=== PATIENT | male | born 1940 | race Caucasian/White ===

== ENCOUNTER 2016-04-25 16:52 | Emergency (ER) | payer BC, OTHER ==
[~2016-04-25 16:52] MED LIST: ABILIFY5 PO; AMILOR/HCTZ1 TAB PO; ASAB PO; COG0.5 PO; CRESTOR PO; CRESTOR20 MG PO; DEPAKOTE PO; DEPAKOTEER PO; DIABETA5 PO; DSS PO; FLOMAX4 PO; GLIPIZIDE PO; GLUCOTROL5 PO; JANUVIA100 MG PO; JANUVIA50 PO; L20 PO; LANTUSCART SC; MAGNESIUM 500MG PO; MAGOX4 PO; MCZ125 PO; NORV5 PO; PRIN10 PO; PT CANNOT RECALL MED; TESSALON200 MG PO; TOVIAZ8 MG PO; TRICOR PO; TRICOR145 PO; VITAMIN D31000 UNIT PO
[2016-11-01] MEDS ORDERED: DEPAKOT500 ×2 (04:26→04:33)
[2016-11-01] MEDS ORDERED: TRADJENTA5 MG PO (04:28)
[2016-11-01] MEDS ORDERED: FLOMAX4 PO (04:33)
== END 2016-04-25 19:39 | disposition home or self-care (01) ==
LOC: ER 16:52
DX: S16.1XXA Strain of muscle, fascia and tendon at neck level, initial encounter (principal); S33.5XXA Sprain of ligaments of lumbar spine, initial encounter; I12.9 Hypertensive chronic kidney disease with stage 1 through stage 4 chronic kidney disease, or unspecified chronic kidney disease; N18.9 Chronic kidney disease, unspecified; F31.9 Bipolar disorder, unspecified; E11.9 Type 2 diabetes mellitus without complications; Z88.8 Allergy status to other drugs, medicaments and biological substances; Z79.4 Long term (current) use of insulin; Z79.82 Long term (current) use of aspirin; Z79.899 Other long term (current) drug therapy; W19.XXXA Unspecified fall, initial encounter
CPT/HCPCS: 72050; 72100; 99284